=== PATIENT | female | born 2000 | race Hispanic/Latino ===

== ENCOUNTER 2020-05-27 01:17 | Emergency (ER) | payer BC, OTHER ==
[2020-05-27] MEDS ORDERED: KETOROLAC 30 MG/ML INJ ONE (01:44)
[2020-05-27] MEDS ORDERED: ONDANSETRON 4 MG/2 ML VIAL ONE (01:44)
[2020-05-27 01:48] LABS: Basophils % 0.6 % (0-1.3); Hematocrit 42.4 % (36.0-45.0); Lymphocytes % 39.7 % (15.3-44.8); MPV 9.4 fL (7.6-11.3); RBC Red Blood Cell Count 5.21 M/uL (3.86-4.86)
[2020-05-27 02:06] LABS: ALT/SGPT 28 U/L (12-78); AST/SGOT 18 U/L (15-37); Albumin 4.4 g/dL (3.4-5.0); Alkaline Phosphatase 77 U/L (45-117); BUN Blood Urea Nitrogen 8 mg/dL (7-18); Bicarbonate 27 mmol/L (21-32); Bilirubin Total 0.3 mg/dL (0.2-1.0); Glucose Level 86 mg/dL (74-106); Potassium 3.7 mmol/L (3.5-5.1); Protein, Total 8.3 g/dL (6.4-8.2); Sodium Level 138 mmol/L (136-145)
[2020-05-27 02:09] LABS: Urine Blood 2+ (NEG); Urine Glucose NEGATIVE (NEG); Urine Protein 3+ (NEG); Urine pH 8.5 (5.0-7.0)
[2020-05-27] MEDS ORDERED: CEFTRIAXONE/SWI 1gm 1 GM/10 ML SYR ONE (02:34)
--- NOTE | 2020-05-27 02:48 | ER ---
Nurse's Notes [facility] Name: Dean Suarez Age: 19 yrs Sex: Female : 2000 Arrival Date: 05/27/2020 Time: :19 Bed 7 Private MD: Diagnosis: Urinary tract infection, site not specified;Hydronephrosis with renal and ureteral calculous obstruction-passed stone Presentation: 05/27 01:26 Chief complaint: Patient states: About an hour ago, I started having lower abdominal sg pain with the pain going around to my right side and right lower back, reports urinary frequency, no other symptoms reported at this time for triage. Coronavirus screen: Client denies travel out of the [place] in the last 14 days. At this time, the client does not indicate any symptoms associated with coronavirus-19. Ebola Screen: Patient negative for fever greater than or equal to 101.5 degrees Fahrenheit, and additional compatible Ebola Virus Disease symptoms Patient denies exposure to infectious person. Patient denies travel to an Ebola-affected area in the 21 days before illness onset. No symptoms or risks identified at this time. Initial Sepsis Screen: Does the patient meet any 2 criteria? No. Patient's initial sepsis screen is negative. Does the patient have a suspected source of infection? Yes: Dysuria/Frequency/Urgency/UTI. Risk Assessment: Do you want to hurt yourself or someone else? Patient reports no desire to harm self or others. Onset of symptoms was May 27, 2020. Care prior to arrival: None. Mechanism of Injury: No Mechanism of Injury. Transition of care: patient was not received from another setting of care. 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 - Social history:: Smoking status: Patient denies any tobacco usage or history of. Screenin:49 Abuse screen: Denies threats or abuse. Denies injuries from another. Nutritional lp1 screening: No deficits noted. Tuberculosis screening: No symptoms or risk factors identified. Fall Risk None identified. Assessment: 01:30 General: Appears uncomfortable, Behavior is crying. Pain: Complains of pain in right lp1 lower quadrant Pain currently is 10 out of 10 on a pain scale. Noted to be crying, grimacing. Neuro: Level of Consciousness is awake, alert, obeys commands, Oriented to person, place, time, situation. Cardiovascular: Patient's skin is warm and dry. Respiratory: Respiratory effort is even, unlabored. GI: Abdomen is flat, Abdomen is tender to palpation in right lower quadrant Guarding noted in right lower quadrant. : Denies burning with urination. EENT: No signs and/or symptoms were reported regarding the EENT system. Derm: Skin is pink, warm \T\ dry. Musculoskeletal: No deficits noted. 02:30 Reassessment: Patient and/or family updated on plan of care and expected duration. Pain lp1 level reassessed. Patient is alert, oriented x 3, equal unlabored respirations, skin warm/dry/pink. Patient states feeling better. Patient states symptoms have improved. 03:09 Reassessment: Patient is alert, oriented x 3, equal unlabored respirations, skin lp1 warm/dry/pink. Patient denies pain at this time. Patient states feeling better. Patient states symptoms have improved. Vital Signs: 01:26 BP 123 / 74; Pulse 83; Resp 22; Temp 98.7; Pulse Ox 98% on R/A; Weight 58.97 kg; Height sg 5 ft. 4 in. (162.56 cm); Pain 10/10; 03:08 BP 102 / 70; Pulse 79; Resp 16; Pulse Ox 100% on R/A; lp1 01:26 Body Mass Index 22.31 (58.97 kg, 162.56 cm) ED Course: 01:19 Patient arrived in ED. am2 01:22 Miranda Fuentes, LUIS is Primary Nurse. lp1 01:23 Cecilio Mtz MD is Attending Physician. manuel 01:26 Arm band placed on. sg 01:28 Triage completed. sg 01:30 Inserted saline lock: 20 gauge in right antecubital area, using aseptic technique. lp1 Blood collected. 01:40 Urine collected: clean catch specimen, clear. lp1 01:50 Patient has correct armband on for positive identification. Placed in gown. lp1 02:07 CT Stone Protocol In Process Unspecified. EDMS 03:09 No provider procedures requiring assistance completed. IV discontinued, No lp1 redness/swelling at site. Pressure dressing applied. Administered Medications: 01:30 Drug: TORadol 30 mg Route: IVP; Site: right antecubital; lp1 01:58 Follow up: Response: Pain is decreased lp1 01:30 Drug: Zofran (Ondansetron) 4 mg Route: IVP; Site: right antecubital; lp1 01:58 Follow up: Response: No adverse reaction lp1 02:22 Drug: Rocephin 1 grams Route: IV; Rate: per protocol; Site: right antecubital; lp1 03:10 Follow up: IV Status: Completed infusion; IV Intake: 10ml lp1 Intake: 03:10 IV: 10ml; Total: 10ml. lp1 Outcome: 02:48 Discharge ordered by MD. jackson 03:09 Discharged to home ambulatory, with family. lp1 03:09 Condition: good 03:09 Discharge instructions given to patient, family, Instructed on discharge instructions, follow up and referral plans. medication usage, Demonstrated understanding of instructions, follow-up care, medications, Prescriptions given X 2. 03:09 Patient left the ED. lp1 Signatures: Dispatcher [employer] EDConnor Ruiz RN RN sg Anderson, Corey, MD MD cha Pena, Laura, RN RN lp1 Becky Castañeda
--- NOTE | 2020-05-27 02:48 | EDPHYS ---
Physician Documentation [facility] Name: Dean Suarez Age: 19 yrs Sex: Female : 2000 Arrival Date: 05/27/2020 Time: :19 Bed 7 Private MD: ED Physician Cecilio Mtz HPI: 05/27 01:32 This 19 yrs old Female presents to ER via Ambulatory with complaints of Flank manuel Pain. 01:32 The patient complains of pain in the right mid back and right low back. The pain manuel radiates to the right mid back and right low back. Onset: The symptoms/episode began/occurred just prior to arrival. Modifying factors: The symptoms are alleviated by nothing. the symptoms are aggravated by nothing. Associated signs and symptoms: The patient has no apparent associated signs or symptoms. The patient has not experienced similar symptoms in the past. 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 - Social history:: Smoking status: Patient denies any tobacco usage or history of. ROS: 01:35 Constitutional: Negative for fever, chills, and weight loss, Eyes: Negative for injury, manuel pain, redness, and discharge, ENT: Negative for injury, pain, and discharge, Neck: Negative for injury, pain, and swelling, Cardiovascular: Negative for chest pain, palpitations, and edema, Respiratory: Negative for shortness of breath, cough, wheezing, and pleuritic chest pain, : Negative for injury, bleeding, discharge, and swelling, MS/Extremity: Negative for injury and deformity, Skin: Negative for injury, rash, and discoloration, Neuro: Negative for headache, weakness, numbness, tingling, and seizure, Psych: Negative for depression, anxiety, suicide ideation, homicidal ideation, and hallucinations, Allergy/Immunology: Negative for hives, rash, and allergies, Endocrine: Negative for neck swelling, polydipsia, polyuria, polyphagia, and marked weight changes, Hematologic/Lymphatic: Negative for swollen nodes, abnormal bleeding, and unusual bruising. 01:35 Abdomen/GI: Positive for abdominal pain, abdominal cramps, of the posterior aspect of right lateral abdomen, anterior aspect of right lateral abdomen and right lower quadrant. Exam: 01:35 Constitutional: This is a well developed, well nourished patient who is awake, alert, manuel and in no acute distress. Head/Face: Normocephalic, atraumatic. Eyes: Pupils equal round and reactive to light, extra-ocular motions intact. Lids and lashes normal. Conjunctiva and sclera are non-icteric and not injected. Cornea within normal limits. Periorbital areas with no swelling, redness, or edema. ENT: Nares patent. No nasal discharge, no septal abnormalities noted. Tympanic membranes are normal and external auditory canals are clear. Oropharynx with no redness, swelling, or masses, exudates, or evidence of obstruction, uvula midline. Mucous membranes moist. Neck: Trachea midline, no thyromegaly or masses palpated, and no cervical lymphadenopathy. Supple, full range of motion without nuchal rigidity, or vertebral point tenderness. No Meningismus. Chest/axilla: Normal chest wall appearance and motion. Nontender with no deformity. No lesions are appreciated. Cardiovascular: Regular rate and rhythm with a normal S1 and S2. No gallops, murmurs, or rubs. Normal PMI, no JVD. No pulse deficits. Respiratory: Lungs have equal breath sounds bilaterally, clear to auscultation and percussion. No rales, rhonchi or wheezes noted. No increased work of breathing, no retractions or nasal flaring. Back: No spinal tenderness. No costovertebral tenderness. Full range of motion. Skin: Warm, dry with normal turgor. Normal color with no rashes, no lesions, and no evidence of cellulitis. MS/ Extremity: Pulses equal, no cyanosis. Neurovascular intact. Full, normal range of motion. Neuro: Awake and alert, GCS 15, oriented to person, place, time, and situation. Cranial nerves II-XII grossly intact. Motor strength 5/5 in all extremities. Sensory grossly intact. Cerebellar exam normal. Normal gait. Psych: Awake, alert, with orientation to person, place and time. Behavior, mood, and affect are within normal limits. 01:35 Abdomen/GI: Inspection: abdomen appears normal, Bowel sounds: normal, Palpation: mild abdominal tenderness, in the right lower quadrant, Liver: no appreciated palpable abnormalities, Hernia: not appreciated. Vital Signs: 01:26 BP 123 / 74; Pulse 83; Resp 22; Temp 98.7; Pulse Ox 98% on R/A; Weight 58.97 kg; Height sg 5 ft. 4 in. (162.56 cm); Pain 10/10; 03:08 BP 102 / 70; Pulse 79; Resp 16; Pulse Ox 100% on R/A; lp1 01:26 Body Mass Index 22.31 (58.97 kg, 162.56 cm) sg MDM: 01:23 Patient medically screened. [facility] 01:36 Differential diagnosis: nephrolithiasis, pyelonephritis, UTI. Data reviewed: vital manuel signs, nurses notes, lab test result(s), radiologic studies, CT scan. Data interpreted: monitoring manager: rate is 83 beats/min, rhythm is regular, Pulse oximetry: on room air is 98 %. Counseling: I had a detailed discussion with the patient and/or guardian regarding: the historical points, exam findings, and any diagnostic results supporting the discharge/admit diagnosis, lab results, radiology results, the need for outpatient follow up. 05/27 01:31 Order name: CBC with Diff; Complete Time: 02:03 manuel 05/27 01:31 Order name: Comprehensive Metabolic Panel; Complete Time: 02:18 manuel 05/27 01:31 Order name: Urine Culture [facility] 05/27 01:31 Order name: CT Stone Protocol [facility] 05/27 01:51 Order name: Urine Dipstick--Ancillary (enter results); Complete Time: 02:18 oe 05/27 01:52 Order name: Urine --Ancillary (enter results); Complete Time: 02:18 oe 05/27 01:31 Order name: Urine Dipstick-Ancillary (obtain specimen); Complete Time: 01:48 manuel 05/27 01:31 Order name: Urine Test (obtain specimen); Complete Time: 01:48 manuel Administered Medications: 01:30 Drug: TORadol 30 mg Route: IVP; Site: right antecubital; lp1 01:58 Follow up: Response: Pain is decreased lp1 01:30 Drug: Zofran (Ondansetron) 4 mg Route: IVP; Site: right antecubital; lp1 01:58 Follow up: Response: No adverse reaction lp1 02:22 Drug: Rocephin 1 grams Route: IV; Rate: per protocol; Site: right antecubital; lp1 03:10 Follow up: IV Status: Completed infusion; IV Intake: 10ml lp1 Disposition: 05/27/20 02:48 Discharged to Home. Impression: Urinary tract infection, site not specified, Hydronephrosis with renal and ureteral calculous obstruction - passed stone. - Condition is Stable. - Discharge Instructions: Dysuria, Kidney Stones, Urinary Tract Infection, Adult, Kidney Stones, [id number], Urinary Tract Infection, Adult, [id number], Hydronephrosis, Dietary Guidelines to Help Prevent Kidney Stones. - Prescriptions for Cipro 250 mg Oral Tablet - take 1 tablet by ORAL route every 12 hours; 14 tablet. Tylenol- Codeine #3 300-30 mg Oral Tablet - take 2 tablets by ORAL route every 6 hours As needed; 20 tablet. - Medication Reconciliation Form, Thank You Letter, Antibiotic Education, Prescription Opioid Use form. - Follow up: Private Physician; When: 2 - 3 days; Reason: Recheck today's complaints, Continuance of care, Re-evaluation by your physician. - Problem is new. - Symptoms have improved. Signatures: Dispatcher [employer] EDMS Connor Vivas RN RN Cecilio Leonard MD MD cha Pena, Laura RN RN lp1 Corrections: (The following items were deleted from the chart) 03:09 02:48 05/27/2020 02:48 Discharged to Home. Impression: Urinary tract infection, site lp1 not specified; Hydronephrosis with renal and ureteral calculous obstruction - passed stone. Condition is Stable. Forms are Medication Reconciliation Form, Thank You Letter, Antibiotic Education, Prescription Opioid Use. Follow up: Private Physician; When: 2 - 3 days; Reason: Recheck today's complaints, Continuance of care, Re-evaluation by your physician. Problem is new. Symptoms have improved. manuel
[2020-05-27 03:25] VITALS: TEMP 98.7
[2020-05-27 03:27] VITALS: BP 102/70; O2SAT 100
--- NOTE | 2020-05-27 14:21 | RAD REPORT ---
EXAM DESCRIPTION: CT ABDOMEN AND PELVIS WITHOUT CONTRAST CLINICAL HISTORY: FLANK PAIN COMPARISON: None Available. TECHNIQUE: CT of the abdomen and pelvis without IV contrast. Evaluation of the solid organs and vasc ulature is suboptimal due to lack of IV contrast. FINDINGS: Lung Bases: The visualized lung bases are clear. Bones: No destructive bone lesions identified. Abdomen: Liver: The liver has normal size and density. Gallbladder: No calcified gallstones. Spleen, Pancreas, and Adrenal Glands: The spleen, pancreas, and adrenal glands are unremarkable. Kidneys: The kidneys have normal size without evidence of hydronephrosis. No obstructing ureteral cindy culi. Mild right periureteral and perinephric fat stranding. Vasculature: The aorta and IVC have normal caliber and position. Stomach: The stomach and duodenum have normal course. Other: No free intraperitoneal air. No free fluid or lymphadenopathy. Pelvis: Bladder: Urinary bladder is unremarkable. Bowel: No dilated loops of large or small bowel. Appendix: Normal appendix. Pelvis: Uterus is not enlarged. IMPRESSION: 1. Nonspecific periureteral and perinephric inflammatory change. This may be related to recently passed right ureteral calculus or may indicate ascending urinary tract infection. This exam was performed according to our departmental dose-optimization program, which includes autom ated exposure control, adjustment of the mA and/or kV according to patient size and/or use of iterati ve reconstruction technique. Electronically signed by: Eugenio Su 05/27/2020 2:27 AM CDT Electronically signed by: Andrei Kinsey MD 05/26/2020 7:55 AM CDT [id number] to jocelynn connor technical issues with the PACS/Fluency reporting system, reports are being signed by the in h ouse Radiologist without review as a courtesy to ensure prompt reporting. The interpreting radiologis t is fully responsible for the content of the report.
== END 2020-05-27 03:09 | disposition home or self-care (01) ==
LOC: ER 01:17
DX: N39.0 Urinary tract infection, site not specified (principal); N13.2 Hydronephrosis with renal and ureteral calculous obstruction
CPT/HCPCS: 96365; 87088; 85025; 87086; 36415; 81025; 81003; 80053; 76377; 74176; 96375; 99284; J0696; J2405